=== PATIENT | female | born 1970 | race Caucasian/White ===

== ENCOUNTER 2018-08-29 06:35 | Day surgery (SDC) | payer BC ==
[~2018-08-29] VITALS: Ht 180.3 cm; Wt 110.7 kg
[~2018-08-29 06:35] MED LIST: ADVIL200 M1 PO; CARAFATE1 GM PO; CENTRUM SILVER1 EAC1 PO; CLINDAMYCIN HC300 MG PO; JOINT SUPPORT1 EACH PO; MICROGESTIN FE1 EAC1 PO; NORCO 5-325 TA1 EACH PO; OMEPRAZOLE20 MG PO; PLAQUENIL200 MG PO; VITAMIN K100 MCG PO; ZOLOFT100 MG PO
[2018-08-29] MEDS ORDERED: VITAMIN D50000 UNI1 PO (06:53)
--- NOTE | 2018-08-29 08:12 | NUR ---
08/29/18 0812 Richa Estrada 0801 PATIENT ARRIVES TO PACU SLEEPING, OPENS EYES WITH VERBAL STIMULI, THEN BACK TO SLEEP. RESP EVEN AND UNLABORED, NC AT 3 LITERS TURNED OFF ON ARRIVAL TO PACU, ROOM AIR SATS 92%. 0810 PATIENT SLEEPING. OPENS EYES WITH VERBAL STIMULI, THEN BACK TO SLEEP. RESP EVEN AND UNLAOBRED, ROOM AIR SATS 92%.
--- NOTE | 2018-08-30 07:00 | OR ---
[facility] [address] [place], [place] [address] Signed DATE OF OPERATION: 08/29/2018 SURGEON: Santos Purcell MD STUDY: Colonoscopy. PREOPERATIVE DIAGNOSIS: Rectal bleeding. POSTOPERATIVE DIAGNOSES: 1. Oulrmyi-mo-pqwntnkp sigmoid diverticulosis. 2. Minimal hemorrhoid tissue. PROCEDURE PERFORMED: Colonoscopy without biopsy. ESTIMATED BLOOD LOSS: None. INDICATIONS: Marimar is a 48-year-old female, asked to see me for her initial colonoscopy. She has been having intermittent rectal bleeding over the last year. Usually, it is associated with bowel movements. She is not sure what makes it better or worse. She is not aware of any hemorrhoids. There is no family history of colon cancer, polyps, or inflammatory bowel disease. She was asked by her primary care provider to see me for a colonoscopy. I had given her a pamphlet on colonoscopy in the office. We had discussed the nature of the test along with the risks including but not limited to, gas, bloating, crampy abdominal pain, bleeding, perforation, requiring surgery, and missed diagnosis. She also understands the need for IV conscious sedation. She had expressed understanding and wished to proceed. PROCEDURE NOTE: Marimar was taken into our endoscopy suite and placed in the left lateral decubitus position. She was given IV sedation with 9 mg of Versed and 150 mcg of fentanyl. A digital rectal exam was performed and this was unremarkable. The adult colonoscope was introduced and advanced all around into the cecum under direct visualization of camera. It took just a minute to get through the hepatic flexure. Her prep was quite excellent. Multiple pictures were taken throughout for photodocumentation. We saw no evidence of any polyps or inflammatory disease in the colon or rectum. She does have Electronically Signed By: SANTOS PURCELL MD 08/30/18 0700 PATIENT NAME: MARIMAR COLBERT OPERATIVE REPORT DATE OF : 72 REPORT #: [id number] PHYSICIAN: SANTOS PURCELL MD PCP: CASEY PORTILLO MD REPORT IS CONFIDENTIAL AND NOT TO BE RELEASED WITHOUT AUTHORIZATION [facility] [address] [place], [place] [address] Signed alhymse-by-pgvilvcj sigmoid diverticulosis. They were minimal to moderate in size, minimal to moderate in number, and scattered about. Upon retroflexion in the rectum, she has very minimal routine internal hemorrhoid tissue. After this, the gas was suctioned out and colonoscope removed. Marimar tolerated the procedure quite well. RECOMMENDATIONS: Marimar can follow up in 10 years for repeat colonoscopy. Santos Purcell MD ALB/MODL /[id number] cc: MD Casey Kate MD Copies: SANTOS PURCELL MD, RUSSELL BARR MD ~ Electronically Signed By: SANTOS PURCELL MD 08/30/18 0700 PATIENT NAME: MARIMAR COLBERT OPERATIVE REPORT DATE OF : 72 REPORT #: [id number] PHYSICIAN: SANTOS PURCELL MD PCP: CASEY PORTILLO MD REPORT IS CONFIDENTIAL AND NOT TO BE RELEASED WITHOUT AUTHORIZATION
== END 2018-08-29 08:35 | disposition home or self-care (01) ==
LOC: OPS 06:35 → DS 06:35 → OPS 06:45 → DS 06:45 → OPS 08:35
PROVIDERS: Colon & Rectal Surgery
PROC: 0DJD8ZZ Inspection of Lower Intestinal Tract, Via Natural or Artificial Opening Endoscopic (ICD-10-PCS; principal; 2018-08-29 06:45)
DX: K64.8 Other hemorrhoids (principal); K57.30 Diverticulosis of large intestine without perforation or abscess without bleeding; J32.9 Chronic sinusitis, unspecified; K21.9 Gastro-esophageal reflux disease without esophagitis; K59.00 Constipation, unspecified; Z98.890 Other specified postprocedural states; Z88.0 Allergy status to penicillin; Z79.899 Other long term (current) drug therapy
CPT/HCPCS: 99153; G0500; J2250; J3010; J7120

== ENCOUNTER 2019-05-15 05:45 | Day surgery (SDC) | payer BC ==
[~2019-05-15] VITALS: Ht 180.3 cm; Wt 113.4 kg
--- NOTE | ~2019-05-15 | OR ---
[facility] [address] [place], [place] [address] Draft DATE OF OPERATION: 05/15/2019 SURGEON: Frankie Magana DO PREOPERATIVE DIAGNOSES: 1. Abnormal uterine bleeding. 2. Large fibroid uterus. 3. Suspected adenomyosis. POSTOPERATIVE DIAGNOSES: 1. Abnormal uterine bleeding. 2. Large fibroid uterus. 3. Suspected adenomyosis. PROCEDURES PERFORMED: 1. Total laparoscopic hysterectomy with ExCITE technique required for large uterus. 2. Bilateral salpingectomy. 3. Cystoscopy. MAIL CLERK BILLS: Paul Reyes MD. ANESTHESIA: General. ESTIMATED BLOOD LOSS: 75. COMPLICATIONS: None. SPECIMENS: 1. Large fibroid uterus. 2. Bilateral fallopian tubes. 3. Cervix. FINDINGS: Normal external genitalia with normal clitoris, urethral meatus, bilateral [place] and Bartholin glands. Normal vagina in caliber and length, but well supported. Normal-appearing cervix. On laparoscopy, large multi-fibroid uterus with normal PATIENT NAME: CHELO ALDRIDGE OPERATIVE REPORT DATE OF : 72 REPORT #: [id number] PHYSICIAN: FRANKIE MAGANA DO PCP: CASEY PORTILLO MD REPORT IS CONFIDENTIAL AND NOT TO BE RELEASED WITHOUT AUTHORIZATION [facility] [address] [place] [address] Draft bilateral fallopian tubes and ovaries. At the end of the procedure, good hemostasis noted with excellent support of the vagina. On cystoscopy, normal urethra, bladder trigone, and normal bilateral ureteral jets. INDICATIONS: Ms. Aldridge is a pleasant 48-year-old white female with a long history of worsening dysmenorrhea and heavy abnormal uterine bleeding. Ultrasound demonstrated enlarged multi-fibroid uterus as well as features consistent with possible adenomyosis. The patient failed conservative therapy and wished to proceed with definitive therapy with total laparoscopic hysterectomy. Risks, benefits, and alternatives were discussed in detail with the patient. We did discuss possibly using the ExCITE technique with contained extracorporeal morcellation to avoid a more invasive laparotomy. The patient understands and wished to proceed with the procedure. TECHNIQUE: The patient was taken to the operating room, where a time-out was performed to confirm correct patient and correct procedure. General anesthesia was adequately established. The patient was prepped in the dorsal lithotomy position with feet in Yellofin stirrups. ICPs were on and running. The patient received Ancef 2 g preoperatively and no heparin. A Bautista catheter was inserted and a weighted speculum was placed in the vagina and the anterior lip of the cervix was grasped with an Allis clamp. The cervix was gently dilated using Hegar dilators and a VCare uterine manipulator was placed without difficulty. The surgeon's gloves were changed and attention was turned to the abdomen. The base of the umbilicus was infiltrated with 0.25% Marcaine and a 5 mm trocar was placed using a direct visual entry without difficulty. Low opening pressures were noted on pneumoperitoneum and survey of the abdomen and pelvis was performed with the above findings. Assist ports were placed in the left and right lower quadrants under direct visualization without complication. Large fibroid uterus was noted filling nearly the entire pelvis. It was felt that a total laparoscopic hysterectomy was indicated in that situation and that it could be performed without significant difficulty. The left cornu was elevated and the fallopian tube was fulgurated and divided near the cornua. The left uterosacral ligament was identified, fulgurated, and divided with good hemostasis. The left round ligament was then fulgurated and divided. The anterior leaf of the broad ligament was divided and taken down to the midline anteriorly. The posterior leaf of the broad ligament was then fulgurated and divided down to the uterosacral ligament. The uterine vasculature was identified, fulgurated, and divided with good hemostasis. The process was repeated on the right side with the fallopian tube, utero-ovarian ligament, and round ligaments serially fulgurated and divided with good hemostasis. The leaves of the broad ligament were dissected and the bladder was pushed well beyond the cup of the uterine manipulator. Good hemostasis was appreciated after the uterine vessels were fulgurated and divided, and the uterus was noted to be well blanched. A LigaSure device was used in the fulguration division as described above. Sonicision PATIENT NAME: CHELO ALDRIDGE OPERATIVE REPORT DATE OF : 72 REPORT #: [id number] PHYSICIAN: FRANKIE MAGANA DO PCP: CASEY PORTILLO MD REPORT IS CONFIDENTIAL AND NOT TO BE RELEASED WITHOUT AUTHORIZATION [address] [address] Draft device was then selected and colpotomy was performed starting at the 6 o'clock position and carried around on the patient's left side to the 12 o'clock position. Colpotomy was then completed. Surgeon presents to the vagina and the uterine manipulator was removed. The cervix was grasped with an Allis clamp, but was unable to be easily removed from the vagina. Decision was made to proceed with the ExCITE technique. The vagina was stuffed with a wet lap inside of a glove to maintain pneumoperitoneum. Pneumoperitoneum was reestablished after the placement of a 10 mm Tami port in the umbilical incision. The fascia was grasped with hemostats and fascial incision was extended bilaterally to accept the larger Tami port. A 15 mm EndoCatch bag was then placed through the Tami port and the uterus and cervix placed inside. The Tami port was then removed and the fascia was cut to a width of approximately 4 cm to facilitate ExCITE technique. The bag was then opened extracorporeally and an Silvino O Mini was then placed inside the bag. The serosal edge of the uterus was then grasped with a double toothed tenaculum, elevated extracorporeally, and the ExCITE technique was used to serially morcellate the uterus again extracorporeally in a contained bag. Once this was completed without difficulty, all portions of the uterus and cervix were noted to be removed and the bag was intact without cuts or evidence of any tissue spillage. The 15 EndoCatch bag and Silvino O were removed and the Tami was replaced. Pneumoperitoneum was reestablished. The colpotomy was then closed using V-Loc suture with an Endostitch device incorporating the uterosacral ligaments bilaterally and the vaginal epithelium with each bite. Good hemostasis and vaginal support were noted at the end of the procedure. Evicel was applied to the cuff to ensure continued hemostasis. Attention was then turned to the fallopian tubes. The fallopian tube on the left was grasped at the fimbriated end and divided along the mesosalpinx. The fallopian tube was then removed and sent to pathology for further evaluation. The process was repeated on the right without difficulty. The Tami port was removed and pneumoperitoneum was reduced. Assist ports were removed. The fascia of the umbilical incision was then reapproximated using 0 Vicryl in a running nonlocked manner and supported with the stay ties from the Tami port. Skin was reapproximated using 4-0 Monocryl at all laparoscopic ports. Attention was turned to cystoscopy. The Bautista catheter was removed and 70-degree cystoscope was placed into the urethral meatus and advanced under direct visualization. The patient was given fluorescein to aid with cystoscopy. Normal urethra, trigone, and bladder dome were noted with no injuries to the bladder. Bilateral ureteral jets were noted. The bladder was drained and Bautista catheter was reinserted. The vaginal glove had been removed and the top of the vagina appears normal. The patient was then taken to PACU in good and stable condition. Sponge, needle, and instrument count was correct x2 at the end of the procedure. Dr. Reyes was present and participated in all portions of the procedure. PATIENT NAME: CHELO ALDRIDGE OPERATIVE REPORT DATE OF : 72 REPORT #: [id number] PHYSICIAN: FRANKIE MAGANA DO PCP: CASEY PORTILLO MD REPORT IS CONFIDENTIAL AND NOT TO BE RELEASED WITHOUT AUTHORIZATION [facility] [address] [place], [place] [address] Draft Frankie Magana DO JTaiW/MAICOL /[id number] Copies: ~ PATIENT NAME: CHELO ALDRIDGE OPERATIVE REPORT DATE OF : 72 REPORT #: [id number] PHYSICIAN: FRANKIE MAGANA DO PCP: CASEY PORTILLO MD REPORT IS CONFIDENTIAL AND NOT TO BE RELEASED WITHOUT AUTHORIZATION
[~2019-05-15 05:45] MED LIST changes: +BIOTIN1 M1 PO; +VITAMIN D50000 UNI1 PO
--- NOTE | 2019-05-15 07:03 | NUR ---
PATIENT RESTING BACK, ADMINISTERED PRE-OP MEDICATIONS. PATIENT TOLERATING WELL. CALL LIGHT WITHIN REACH. VS STABLE.
--- NOTE | 2019-05-15 09:58 | NUR ---
05/15/19 0958 Kinga Thomas 0949- PT ARRIVES TO PACU NONAROUSABLE TO NOXIOUS STIMULI. RESP EVEN AND UNLABORED. OXYGEN SAT HIGH 90'S TO 100% ON 8L VIA MASK. 0950- OXYGEN TITRATED TO 6L VIA MASK.
--- NOTE | 2019-05-15 11:59 | NUR ---
PATIENT AMBULATED TO BATHROOM, STEADY ON FEET. MORE DC'D. BACK TO BED, DRINKING LIQUIDS AND TOLERATING SOFT DIET WELL. PUNCTURE SITES ON ABDOMEN CLEAN DRY AND INTACT. AT BEDSIDE. PAIN WELL CONTROLLED WITH PERCOCET RATES PAIN 4/10 PAIN SCALE. PROVIDED WARM BLANKET. DISCUSSED DISCHARGE EDUCATION, WITH PATIENT AND .
--- NOTE | 2019-05-15 12:21 | NUR ---
PATIENT UP TO BATHROOM, TOLERATING ACTIVITY WELL. VOIDED 20 ML OF FLOURESCENT YELLOW URINE. PATIENT CONTINUING TO DRINK FLUIDS. ASSISTING PATIENT WITH GETTING DRESSED. PATIENT STATES " I WANT TO GET HOME TO MY OWN BED".
--- NOTE | 2019-05-16 14:32 | PATH ---
[facility] [address] [place], [place] [address] Signed SPECIMEN(S): A UTERUS, CERVIX, AND TUBES SPECIMEN SOURCE: A. UTERUS, CERVIX, AND TUBES CLINICAL HISTORY: Abnormal uterine bleeding, adenomyosis. FINAL PATHOLOGIC DIAGNOSIS: Uterus, cervix and bilateral fallopian tubes, hysterectomy and bilateral salpingectomy: - Cervix: - Benign squamous mucosa and endocervix with some reactive changes. - Negative for dysplasia and malignancy. - Endomyometrium: - Leiomyomas (up to 3.5 cm). - Adenomyosis. - Serosal adhesions. - Benign proliferative endometrium. - Negative for polyps, hyperplasia, atypia, and malignancy. - Bilateral fallopian tubes: - Benign fimbria and fallopian tubes with paratubal cysts. DDF:cml:C2NR MICROSCOPIC EXAMINATION: Histologic sections of all submitted blocks are examined by light microscopy. These findings, together with the gross examination, support the pathologic diagnosis. GROSS DESCRIPTION: The specimen, labeled "CH, uterus, cervix and bilateral fallopian tubes," is received fresh and consists of a 369 g, 16.2 x 13.5 x 6.8 cm aggregate of morcellated uterine fragments. Within the aggregate there is a 3.0 cm diameter cervix with a 0.7 cm slit-like os. Separate within the container are two undesignated fimbriated fallopian tubes, measuring 4.5 cm in length x 0.7 cm in diameter and 5.7 cm in length x 0.7 cm in diameter. Throughout the specimen there are multiple lopez-white firm, well circumscribed nodules ranging from 0.6 cm to 3.5 x 3.2 x 2.7 cm. All of the nodules have a lopez-white, whorled and well circumscribed cut surface with no areas of hemorrhage grossly identified. The 0.1 cm thick endometrium is red and smooth. PATIENT NAME: CHELO COLBERT PATHOLOGY DATE OF : 72 REPORT #: [id number] PHYSICIAN: MACRINA PATHOLOGY PCP: CASEY PORTILLO MD REPORT IS CONFIDENTIAL AND NOT TO BE RELEASED WITHOUT AUTHORIZATION [facility] [address] [place], [place] [address] Signed The myometrium is lopez-pink and trabeculated. Both fallopian tubes have a violaceous and smooth serosal surface with a stellate lumen. The first dictated fallopian tube includes multiple fluid-filled cysts near the fimbriated end, ranging from 0.4-0.5 cm in greatest dimension. Cassette summary: (A1) cervix (A2) uterine corpus (A3) largest nodule (A4-A5) additional nodules (A6) both fallopian tubes, second dictated fallopian tube inked black. AM (under the direct supervision of a pathologist) The Gross Description was prepared using a voice recognition system. The report was reviewed for accuracy; however, sound-alike word errors, addition and/or deletions may occur. If there is any question about this report, please contact Client Services. PERFORMING LABORATORY: The technical component was performed by [employer], [address] [place] [id number] (Medication Technician: Samina Whalen MD; CLIA# [id number]).[facility], [address] [place] [address] (CLIA# [id number]). Diagnostician: Dixon Riggins DO Pathologist Electronically Signed 05/16/2019 Copies: ~ PATIENT NAME: CHELO COLBERT PATHOLOGY DATE OF : 72 REPORT #: [id number] PHYSICIAN: MACRINA FLORES PCP: CASEY PORTILLO MD REPORT IS CONFIDENTIAL AND NOT TO BE RELEASED WITHOUT AUTHORIZATION
== END 2019-05-15 14:05 | disposition home or self-care (01) ==
LOC: DS 05:45
PROVIDERS: Obstetrics & Gynecology
PROC: 0UT94ZZ Resection of Uterus, Percutaneous Endoscopic Approach (ICD-10-PCS; principal; 2019-05-15 06:45)
PROC: 0UT74ZZ Resection of Bilateral Fallopian Tubes, Percutaneous Endoscopic Approach (ICD-10-PCS; 2019-05-15 06:45)
DX: D25.9 Leiomyoma of uterus, unspecified (principal); N80.0 Endometriosis of uterus; N83.8 Other noninflammatory disorders of ovary, fallopian tube and broad ligament; F32.9 Major depressive disorder, single episode, unspecified; M35.00 Sjogren syndrome, unspecified; E66.9 Obesity, unspecified; Z79.899 Other long term (current) drug therapy; Z88.0 Allergy status to penicillin; Z68.34 Body mass index [BMI] 34.0-34.9, adult
CPT/HCPCS: 00840; J0131; J0330; J1100; J1170; J1580; J1885; J2250; J2405; J2704; J3010; J3490; J7121

== ENCOUNTER 2020-02-09 15:26 | Emergency (ER) | payer BC ==
[~2020-02-09] VITALS: Ht 180.3 cm; Wt 117.9 kg
--- OUTSIDE RECORDS SUMMARY | ~2020-02-09 | XMS | Encounter Summary ---
Demographics + + + | Address | [address] | | | [place] [address] | + + + | Home Phone | | + + + | Preferred Language | Unknown | + + + | Marital Status | | + + + | Mormonism Affiliation | Unknown | + + + | Race | White | + + + | Ethnic Group | Not or | + + + Author + + + | Author | [facility] | | | and [place] | + + + | Organization | [facility] | | | and [place] | + + + | Address | Unknown | + + + | Phone | Unavailable | + + + Support + + + + + | Name | Relationship | Address | Phone | + + + + + | Debra Luis Carlos | ECON | [address] | | | | [place], [place] | | | | | [address] | | + + + + + | Papito Aldridge | ECON | [address] | | | | | [place] | | | | | [address] | | + + + + + | Papito Aldridge | ECON | Unknown | | + + + + + Care Team Providers + +------+ + | Care Lane Attendant Name | Role | Phone | + +------+ + | Marcelo Ruffin MD | PCP | | + +------+ + Encounter Details +--------+ + + + + | Date | Type | Department | Care Team | Description | +--------+ + + + + | 07/08/ | Hospital | [facility] | Gian Valentine | | | 2012 - | Encounter | MED CTR XRAY [address] | [address] | | | | | [address] [place] | [place], [place] | | | 07/10/ | | [place] [address] | [address] | | | 2012 | | [phone] | [phone] | | | | | | | | +--------+ + + + + Social History + +-------+ +--------+------+ | Tobacco Use | Types | Packs/Day | Years | Date | | | | | Used | | + +-------+ +--------+------+ | Never Assessed | | | | | + +-------+ +--------+------+ + + + | Sex Assigned at | Date Recorded | | | | + + + | Not on file | | + + + documented as of this encounter Medications at Time of Discharge + + + +---------+--------+ + | Medication | Sig | Dispensed | Refills | Start | End Date | | | | | | Date | | + + + +---------+--------+ + | Multiple Vitamin | Take 1 tablet by | | 0 | | | | (MULTI-VITAMIN DAILY | mouth Daily. | | | | | | PO) | | | | | | + + + +---------+--------+ + | sertraline | Take 50 mg by mouth | | 0 | | | | (ZOLOFT) 50 mg | Daily. | | | | | | tablet | | | | | | + + + +---------+--------+ + documented as of this encounter Plan of Treatment Not on filedocumented as of this encounter Procedures + +--------+ + + + | Procedure Name | Priori | Date/Time | Associated Diagnosis | Comments | | | ty | | | | + +--------+ + + + | XR CERVICAL SPINE 4 | Routin | 07/08/2012 | | Results for this | | OR 5 VWS | e | 11:45 AM | | procedure are in the | | | | PST | | results section. | + +--------+ + + + documented in this encounter Results XR CERVICAL SPINE 4 OR 5 VW (07/08/2012 11:45 AM PST) + + | Specimen | + + | | + + + + + | Narrative | Performed At | + + + | [facility] | [place] | | Department [address] [place] [address] [facility] | | [ rep [address]] [ rep [facility] | | st zip] Signed | - IMAGING | | | | | Patient Name: MARIMAR ALDRIDGE Physician: | | | ARRE.01 : 1970 Age: 42 Sex: F Unit #: [id number] | | | Exam Date: 07/08/12 Location: [facility] | | | Report #: [id number] Page: | | | %(RAD)RES..mtdd.print.filter("pg") of %(RAD) | | | RES..mtdd.print.filter("tpg") | | | | | | Accession Number: [id number] | | | CERVICAL SPINE FOUR-VIEW X-RAY CLINICAL HISTORY: NECK | | | PAIN. FINDINGS: On the lateral view, the cervical | | | spine is evaluated to the level of C7-T1. There is reversal of the | | | cervical lordosis centered at the level of C5. Vertebral body height | | | and alignment are otherwise maintained. There is no evidence of | | | spondylolisthesis on the flexion and extension views. There is loss | | | of disc height at the level of C4-5 and C5-6, with endplate sclerotic | | | change and osteophyte formation seen at these levels. Uncinate | | | process spurring is also seen in a similar distribution. The | | | prevertebral soft tissues are normal. The visualized structures of the | | | skull base and posterior face are unremarkable. | | | IMPRESSION: NO EVIDENCE OF FRACTURE OR SUBLUXATION. SPONDYLOTIC | | | CHANGE AND LOSS OF DISC HEIGHT DESCRIBED ABOVE. | | | Dictated Date/Time: 07/08/2012 11:45 Transcribed Date/Time: | | | 07/08/2012 11:54 Extrusion Engineer: BRAYDEN | | | <<Signature on File>> | | | Dixon | | | Louise Castillo MD07/08/122000 <Electronically signed by Dixon Castillo MD> Dixon Castillo MD 07/08/12 1145 | | | Extrusion Engineer: The Knowland Groupaakash Quintana07/08/12 1154 | | | Gian Valentine MD | | + + + + + + + + | Performing | Address | City/State/Zipcode | Phone Number | | Organization | | | | + + + + + | [facility] | [address] | [place] | [phone] | | [facility] | | [address] | | | - IMAGING | | | | + + + + + documented in this encounter Visit Diagnoses Not on filedocumented in this encounter
--- OUTSIDE RECORDS SUMMARY | ~2020-02-09 | XMS | Encounter Summary ---
Demographics + + + | Address | [address] | | | [place] [address] | + + + | Home Phone | | + + + | Preferred Language | Unknown | + + + | Marital Status | | + + + | Congregational Affiliation | Unknown | + + + | Race | White | + + + | Ethnic Group | Not or | + + + Author + + + | Author | [facility] | | | and [place] | + + + | Organization | [facility] | | | [...] [place], [place] | | | | | [address] | | + + + + + | Papito Aldridge | ECON | [address] | | | | | [place] | | | | | [address] | | + + + + + | Papito Aldridge | ECON | Unknown | | + + + + + Care Team Providers + +------+ + | Care Home Energy Consultant Supervisor Name | Role | Phone | + +------+ + | Marcelo Ruffin MD | PCP | | + +------+ + Encounter Details +--------+ + + + + | Date | Type | Department | Care Team | Description | +--------+ + + + + | 07/02/ | Abstract | [facility] [place] [facility] Gian Valentine | | | 2012 | | [address] | MD Julius [address] | | | | | [address] | [place], [place] | | | | | [place], [place] | [address] | | | | | [address] | [phone] | | | | | [phone] | | | +--------+ + + + [...] + + documented as of this encounter Plan of Treatment Not on filedocumented as of this encounter Visit Diagnoses Not on filedocumented in this encounter"
--- OUTSIDE RECORDS SUMMARY | ~2020-02-09 | XMS | Encounter Summary ---
Demographics + + + | Address | [address] | | | [place] [address] | + + + | Home Phone | | + + + | Preferred Language | Unknown | + + + | Marital Status | | + + + | Congregation Affiliation | Unknown | + + + | Race | White | + + + | Ethnic Group | Not or | + + + Author + + + | Author | [facility] | | | and [place] | + + + | Organization | [facility] | | | and [...] [place], [place] | | | | | [address] | | + + + + + | Papito Aldridge | ECON | [address] | | | | | [place] | | | | | [address] | | + + + + + | Papito Aldridge | ECON | Unknown | | + + + + + Care Team Providers + +------+ + | Care Lighting Technician Name | Role | Phone | + +------+ + | Marcelo Ruffin MD | PCP | | + +------+ + Reason for Referral Evaluate & Treat (Routine) +--------+ + + + + + | Status | Reason | Specialty | Diagnoses / | Referred By | Referred To | | | | | Procedures | Contact | Contact | +--------+ + + + + + | Closed | Specialty | Pain Medicine | Diagnoses | Valentine, | [place], | | | Services | | Cervical | Gian Madrid, | Valentino Larson MD | | | Required | | disc | MD [address] | | | | | disorder | [address] | [address] | | | | | with | [place], | [address] | | | | | radiculopath | [place] [address] | [place] | | | | | y Disc | Phone: | [address] | | | | | displacement | [phone] | Phone: | | | | | , cervical | [phone] Fax: | [phone] | | | | | Grenola-neck | | Fax: | | | | | deformity(73 | [phone] | [phone] | | | | | 6.22) | | | +--------+ + + + + + Evaluate & Treat (Routine) +--------+ + + + + + | Status | Reason | Specialty | Diagnoses / | Referred By | Referred To | | | | | Procedures | Contact | Contact | +--------+ + + + + + | Closed | Specialty | Physical | Diagnoses | Van Renetta, | | | | Services | Therapy | Cervical | Jseus, | | | | Required | | disc | PA-C [address] | | | | | | disorder | [address] | | | | | | with | [place], | | | | | | radiculopath | [place] [address] | | | | | | y Disc | Phone: | | | | | | displacement | [phone] | | | | | | , cervical | Fax: | | | | | | Grenola-neck | [phone] | | | | | | deformity(73 | | | | | | | 6.22) | | | +--------+ + + + + + Reason for Visit + + + | Reason | Comments | + + + | Neck Pain | | + + + | Shoulder Pain | | + + + Encounter Details +--------+---------+ + + + | Date | Type | Department | Care Team | Description | +--------+---------+ + + + | 07/08/ | Office | [facility] | Gian Valentine | Cervical disc | | 2012 | Visit | NEUROSURGERY [address] | MD Julius [address] | disorder with | | | | [address] | St [place], [place] | radiculopathy | | | | [place], [place] | [address] | (Primary Dx); Disc | | | | [address] | [phone] | displacement, | | | | [phone] | | cervical; Grenola-neck | | | | | | deformity | +--------+---------+ + + + Social History + +-------+ +--------+------+ | Tobacco Use | Types | Packs/Day | Years | Date | | | | | Used | | + +-------+ +--------+------+ | Never Smoker | | | | | + +-------+ +--------+------+ + +---+---+---+ | Smokeless Tobacco: | | | | | Never Used | | | | + +---+---+---+ + + +---------+ + | Alcohol Use | Drinks/Week | oz/Week | Comments | + + +---------+ + | Yes | | | rarely | + + +---------+ + + + + | Sex Assigned at | Date Recorded | | | | + + + | Not on file | | + + + documented as of this encounter Last Filed Vital Signs + + + + + | Vital Sign | Reading | Time Taken | Comments | + + + + + | Blood Pressure | 119/70 | 07/08/2012 9:40 AM | | | | | PST | | + + + + + | Pulse | 75 | 07/08/2012 9:40 AM | | | | | PST | | + + + + + | Temperature | - | - | | + + + + + | Respiratory Rate | 20 | 07/08/2012 9:40 AM | | | | | PST | | + + + + + | Oxygen Saturation | - | - | | + + + + + | Inhaled Oxygen | - | - | | | Concentration | | | | + + + + + | Weight | 100 kg (220 lb 6.4 | 07/08/2012 9:40 AM | | | | oz) | PST | | + + + + + | Height | 182 cm (5' 11.65") | 07/08/2012 9:40 AM | | | | | PST | | + + + + + | Body Mass Index | 30.18 | 07/08/2012 9:40 AM | | | | | PST | | + + + + + documented in this encounter Progress Notes Gian Valentine MD - 07/08/2012 10:12 AM PSTFormatting of this note might be differen t from the original. MD Jesus Darden [address], [address] [place], [place] [id number] FAX: NEUROSURGERY HISTORY AND PHYSICAL EXAMINATION CHIEF COMPLAINT: Chief Complaint Patient presents with Neck Pain Shoulder Pain HISTORY OF PRESENT ILLNESS: We had the great pleasure of seeing in my clinic Ms. Marimar gonzalez. Ms. Aldridge is a very pleasant 42 y.o. female with the complaint of symptoms that be nilda 1-2 years ago. She describes her symptoms as left sided neck/shoulder pain radiating do wn her left arm with associated numbness in her thumb and index finger on her left hand. Sahil r symptoms have been progressive since April 2012 which is when she noticed the numbness in her fingers. She denies any inciting event and denies symptoms on the right side. She r eports that she has been riding horses all her life. Her symptoms worsen with prolonged periods of sitting. Her symptoms improve with NSAIDs. She describes left thumb and index numbness. She describes left hand weakness. Bowel and bladder function are stable. Treatments for these symptoms she has tried include chiropractics and NSAIDs. PAST MEDICAL HISTORY: Past Medical History Diagnosis Date Environmental allergies PAST SURGICAL HISTORY: No past surgical history on file. CURRENT MEDICATIONS: Current Outpatient Prescriptions on File Prior to Visit Medication Sig Dispense Refill sertraline (ZOLOFT) 50 mg tablet Take 50 mg by mouth Daily. Multiple Vitamin (MULTI-VITAMIN DAILY PO) Take 1 tablet by mouth Daily. ALLERGIES: Allergies Allergen Reactions Penicillins Other (See Comments) Blisters around mouth SOCIAL HISTORY: The patient reports that she has never smoked. She has never used smokeless tobacco. She r eports that she drinks alcohol. She reports that she does not use illicit drugs. FAMILY HISTORY: Family History Problem Relation Age of Onset Heart defect Father Diabetes Father High blood pressure Father Alcohol abuse Sister Alcohol abuse Maternal Uncle Migraines Maternal Grandmother Diabetes Maternal Grandmother Arthritis Mother REVIEW OF SYSTEMS: GENERAL: No fever, no anemia, no fatigue, no recent profound weight changes. EYES: No eye problems, no use of corrective lenses, no eye injury, no double vision, no bl indness. EARS, NOSE, AND THROAT: No changes in taste or smell, no hearing difficulty, no ringing in the ears, no ear drainage, no dizziness, no voice changes, no difficulty swallowing, no sig nificant snoring, no sleep apnea, no sinus problems, no major dental work. NEUROLOGIC: Please see the review of systems discussed above in the history of present ill ness. MUSCULOSKELETAL: complains of neck pain, denies back pain. PSYCHIATRIC: No depression, no sleep disorders, no anxiety, no bipolar disorder, no psycho tic episodes. CARDIOVASCULAR: No heart attacks, no heart murmur, no heart fluttering, no chest pain, no ankle swelling. PULMONARY: No shortness of breath, no cough, no tuberculosis, no bloody cough, no asthma, no emphysema/COPD. GASTROINTESTINAL: No bowel disease, no nausea or vomiting, no rectal bleeding, no constipa tion, no stool incontinence, no liver disease, no gallbladder disease, no abdominal pain, no ulcers. GENITOURINARY: No urinary frequency, no painful or difficult urination, no Incontinence. ENDOCRINE: No diabetes, no thyroid disease, no osteopenia or osteoporosis, no breast drain age. SKIN: No breast lumps, no skin changes, no rashes, no itches. HEMATOLOGIC/LYMPHATIC: No enlarged lymph nodes, no easy or unusual bleeding, no personal h istory of cancer. RHEUMATOLOGIC: No joint arthritis, no rheumatoid, no inflammatory arthritis. PHYSICAL EXAMINATION: Blood pressure 119/70, pulse 75, resp. rate 20, height 1.82 m (5' 11.65"), weight 99.973 kg (220 lb 6.4 oz). Body mass index is 30.18 kg/(m^2). GENERAL: Marimar Aldridge is a pleasant, well developed, well nourished female in no acute d istress with unlabored respirations who appears her stated age. The patient does not appea r uncomfortable throughout the exam today. HEENT: HEAD/FACE: EYES: EARS: NASOPHARNYX: OROPHARNYX: Normocephalic and atraumatic. There are no areas of recent trauma. Normal sclerae without icterus. Tympanic membranes are clear. No drainage or tenderness. Benign. Clear without drainage. Benign. Clear without erythema. NECK (ANTERIOR): Supple with no palpable masses. There are not audible bruits. CHEST: Clear to ausculation without crackles or wheeze. HEART: Regular rate and rhythm without murmurs. ABDOMEN: Soft, non-tender, non-distended, and without palpable masses. The patient is not obese. SPINE: The cervical spine exam shows there is no tenderness over the C-2 and C-8 region. R meaghan of motion is limited. Rotation and extension does not cause symptoms to radiate into t he extremities. No tenderness in the midline of the thoracic or lumbar spine. There is no major palpable d eformity of the spine. EXTREMITIES: No cyanosis, clubbing, or edema. Distal pulses are palpable. NEUROLOGICAL EXAM: MENTAL STATUS: The patient is awake, alert, and oriented x3. Speech is fluent, comprehension is intact. Affect is appropriate. Fund of knowledge is adequate. Memory is intact for recent and remote events. CRANIAL NERVES: II: Acuity is intact. Rojas are full to confrontation. III, IV, : The pupils are reactive. Extraocular movements are intact. No ptosis is note d. V: Facial sensation is intact and symmetric. VII: Facial movements are symmetric. VIII: Hearing is intact bilaterally. IX, X: The uvula and palate move appropriately. XI: Shrug is equal bilaterally. XII: Tongue protrusion is midline. MOTOR EXAM: (5 IS NORMAL) * Indicates pain limited MUSCLE/ MOVEMENT: RIGHT LEFT Deltoids 5 5 Biceps 5 5 Triceps 5 5 Wrist Flexion 5 5 Wrist Extension 5 5 Median Intrinsics 5 5 Ulnar Intrinsics 5 5 Byproducts Operator Strength 42# 36# Hip Flexion 5 5 Hip Extension 5 5 Knee Flexion 5 5 Knee Extension 5 5 Dorsiflexion 5 5 Extensor Hallicus Longus 5 5 Plantarflexion 5 5 SENSORY EXAM: Sensory exam shows diminished sensation to light touch or pain in her left thumb and index finger. REFLEXES: (2 OR 2+ IS NORMAL) REFLEX: RIGHT LEFT BICEPS 2 3 BRACHIORADIALIS 2 2 TRICEPS 2 2 PATELLAR 2 2 ACHILLES 2 2 URBAN'S ABSENT ABSENT PLANTAR ABSENT ABSENT GAIT: Gait is steady. The patient is able to heel/ toe, and tandem walk. PERIPHERAL NERVE/MISC: Tinel is negative at the wrists and elbows bilaterally. Phalen is negative. Straight leg raise is negative bilaterally. Alex's test of the hips is negative bilaterally. Impingement test is negative bilaterally. RADIOGRAPHIC REVIEW: Imaging studies which were reviewed with the patient include an MRI of the cervical spine p erformed without contrast on April 24, 2012. This demonstrates what appears to be mild s wan-neck deformity. There is degenerative disc disease with disc herniations present at C4- 5 and C5-6. There is some left neuroforaminal stenosis at the left C5-6 level. X-rays AP and lateral as well as flexion extension and oblique views of the cervical spine performed on April 18, 2012 demonstrate this mild swan-neck deformity with the mild degene rative disc disease. 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 However this point I would recommend additional conserva tive therapy as she has not pursued much yet. Therefore will make a referral for physical t herapy including cervical traction. Additionally on the head refer her to Dr. Malcolm Núñez for consideration for possible epidural steroid injection. Should these measures fail or s hould her symptoms worsen I instructed her to contact me to return to we can revisit the opt ions for surgical treatment. We spent 1 hour in visit with Marimar Aldridge today with the majority of time spent counsell ing the patient on her diagnosis, discussing options for her care, and coordinating her care . ELECTRONICALLY SIGNED BY: Gian Valentine MD, 07/08/2012 10:42 documented in this encounter Plan of Treatment + + +--------+ + + | Name | Type | Priori | Associated Diagnoses | Order Schedule | | | | ty | | | + + +--------+ + + | Ambulatory referral | Outpatient | Routin | Cervical disc | 1 Occurrences | | to Physical Therapy | Referral | e | disorder with | starting 07/08/2012 | | | | | radiculopathy Disc | until 07/08/2013 | | | | | displacement, | | | | | | cervical Grenola-neck | | | | | | deformity | | + + +--------+ + + | Ambulatory referral | Outpatient | Routin | Cervical disc | 1 Occurrences | | to Pain Clinic | Referral | e | disorder with | starting 07/08/2012 | | | | | radiculopathy Disc | until 07/08/2013 | | | | | displacement, | | | | | | cervical [place]-neck | | | | | | deformity | | + + +--------+ + + documented as of this encounter Visit Diagnoses + + | Diagnosis | + + | Cervical disc disorder with radiculopathy - Primary Other and unspecified disc | | disorder of cervical region | + + | Disc displacement, cervical Displacement of cervical intervertebral disc without | | myelopathy | + + | [place]-neck deformity(736.22) Grenola-neck deformity | + + documented in this encounter
--- OUTSIDE RECORDS SUMMARY | ~2020-02-09 | XMS | Encounter Summary ---
Demographics + + + | Address | [address] | | | [place] [address] | + + + | Home Phone | | + + + | Preferred Language | Unknown | + + + | Marital Status | | + + + | Rastafarian Affiliation | Unknown | + + + | Race | White | + + + | Ethnic Group | Not or | + + + Author + + + | Author | [facility] | | | and [place] | + + + | Organization | [facility] | | | [...] [place], [place] | | | | | [address] | | + + + + + | Papito Aldridge | ECON | [address] | | | | | [place] | | | | | [address] | | + + + + + | Papito Aldridge | ECON | Unknown | | + + + + + Care Team Providers + +------+ + | Care Assembly Hand Name | Role | Phone | + +------+ + | Marcelo Ruffin MD | PCP | | + +------+ + Reason for Visit +--------+--------+ + | Reason | Onset | Comments | | | Date | | +--------+--------+ + | Other | 07/18/ | Requests increase in cervical traction weight | | | 2012 | | +--------+--------+ + Encounter Details +--------+ + + + + | Date | Type | Department | Care Team | Description | +--------+ + + + + | 07/18/ | Telephone | [facility] | Gian Valentine | Other (Requests | | 2012 | | [address] | MD Julius [address] | increase in cervical | | | | [address] | [place], [place] | traction weight ) | | | | [place], [place] | [address] | | | | | [address] | [phone] | | | | | [phone] | | | +--------+ + + + [...] + + documented as of this encounter Miscellaneous Notes Telephone Encounter - Jazmine George - 07/19/2012 8:57 AM PSTLeft message for Jossue malik from Dr. Valentine to increase the weight of Marimar's cervical traction. Jazmine elephone Encounter - Gian Valentine MD - 07/18/2012 5:01 PM PSTOk, 10-15 pounds. elephone Encounter - Jazmine George - 12/2012 8:48 AM PSTJossue calls today to see if it would be okay for him to increase the weigh t on Marimar's cervical traction. He states that the prescription states up to 5lbs and he w ould like to increase this to 15lbs. They did try the 5lbs yesterday and didn't feel as if it was doing anything. Please advise. Jazmine documented in this enc ounter Plan of Treatment Not on filedocumented as of this encounter Visit Diagnoses Not on filedocumented in this encounter"
--- OUTSIDE RECORDS SUMMARY | ~2020-02-09 | XMS | Clinical Summary ---
Demographics + + + | Address | [address] | | | [place] [address] | + + + | Home Phone | | + + + | Preferred Language | Unknown | + + + | Marital Status | | + + + | Catholic Affiliation | Unknown | + + + | Race | White | + + + | Ethnic Group | Not or | + + + Author + + + | Author | [facility] | | | and [place] | + + + | Organization | [facility] | | | [...] [place], [place] | | | | | [address] | | + + + + + | Papito Aldridge | ECON | [address] | | | | | [place] | | | | | [address] | | + + + + + | Papito Aldridge | ECON | Unknown | | + + + + + Care Team Providers + +------+ + | Care Surety Bond Agent Name | Role | Phone | + +------+ + | Marcelo Ruffin MD | PCP | | + +------+ + Allergies + + + + + + | Active Allergy | Reactions | Severity | Noted | Comments | | | | | Date | | + + + + + + | Penicillins | Other (See Comments) | High | 07/08/19 | Blisters around | | | | | 13 | mouth | + + + + + + Medications + + + +---------+------+------+-------+ | Medication | Sig | Dispensed | Refills | Star | End | Statu | | | | | | t | Date | s | | | | | | Date | | | + + + +---------+------+------+-------+ | sertraline | Take 50 mg by mouth | | 0 | | | Activ | | (ZOLOFT) 50 mg | Daily. | | | | | e | | tablet | | | | | | | + + + +---------+------+------+-------+ | Multiple Vitamin | Take 1 tablet by | | 0 | | | Activ | | (MULTI-VITAMIN DAILY | mouth Daily. | | | | | e | | PO) | | | | | | | + + + +---------+------+------+-------+ Active Problems + + + | Problem | Noted Date | + + + | Cervical disc disorder with radiculopathy | 07/08/2012 | + + + | Disc displacement, cervical | 07/08/2012 | + + + | [place]-neck deformity(736.22) | 07/08/2012 | + + + | Environmental allergies | | + + + Family History + + +------+ + | Medical History | Relation | Name | Comments | + + +------+ + | Diabetes | Father | | | + + +------+ + | Heart defect | Father | | | + + +------+ + | High blood pressure | Father | | | + + +------+ + | Diabetes | Maternal | | | | | Grandmoth | | | | | er | | | + + +------+ + | Migraines | Maternal | | | | | Grandmoth | | | | | er | | | + + +------+ + | Alcohol abuse | Maternal | | | | | Uncle | | | + + +------+ + | Arthritis | Mother | | | + + +------+ + | Alcohol abuse | Sister | | | + + +------+ + + +------+ + + | Relation | Name | Status | Comments | + +------+ + + | Father | | | Heart Attack | + +------+ + + | Maternal Grandmother | | | | + +------+ + + | Maternal Uncle | | | | + +------+ + + | Mother | | | | + +------+ + + | Sister | | | | + +------+ + + Social History + +-------+ +--------+------+ [...] on file | | + + + Last Filed Vital Signs + + + [...] | | + + + + + Plan of Treatment + + +-------+ + | Health Maintenance | Due Date | Last | Comments | | | | Done | | + + +-------+ + | Vaccine: | | | | | Dtap/Tdap/Td (1 - | 0 | | | | Tdap) | | | | + + +-------+ + | Cervical Cancer | | | | | Screening (Pap) | 1 | | | + + +-------+ + | Breast Cancer | | | | | Screening | 6 | | | + + +-------+ + | Vaccine: Influenza | | | | | (#1) | 0 | | | + + +-------+ + Results Not on filefrom Last 3 Months Insurance + +--------+ +--------+ +---------+------+ | Payer | Benefi | Subscriber | Effect | Phone | Address | Type | | | t Plan | ID | ja | | | | | | / | | Dates | | | | | | Group | | | | | | + +--------+ +--------+ +---------+------+ | [employer] | [place] | [id number] | 06/11/19 | [phone] | | PPO | | | | | 13-Pre | 2 | | | | | HEALTH | | sent | | | | | | CARE | | | | | | | | PPO | | | | | | + +--------+ +--------+ +---------+------+ + +--------+ +--------+ + + | Guarantor Name | Accoun | Relation to | Date | Phone | Billing Address | | | t Type | Patient | of | | | | | | | | | | + +--------+ +--------+ + + | Marimar Aldridge | Person | Self [birth year] | [address] | | | al/Fam | | 1970 | [phone] | [place] [address] | | | sivan | | | 9 (Home) | | | | | | | [phone] | | | | | | | 2 (Work) | | + +--------+ +--------+ + + | Marimar Aldridge L | Person | Self | [birth year] | [address] | | | al/Fam | | 1969 | [phone] | [place] [address] | | | sivan | | | 9 (Home) | | | | | | | [phone] | | | | | | | 2 (Work) | | + +--------+ +--------+ + + Advance Directives + + + + + | Type | Date Recorded | Patient | Explanation | | | | Personnel Clerk | | + + + + + | Power of | | | | | Appliance Counselor | | | | + + + + +
--- OUTSIDE RECORDS SUMMARY | ~2020-02-09 | XMS | Encounter Summary ---
Demographics + + + | Address | [address] | | | [place] [address] | + + + | Home Phone | | + + + | Preferred Language | Unknown | + + + | Marital Status | | + + + | Yazidi Affiliation | Unknown | + + + | Race | White | + + + | Ethnic Group | Not or | + + + Author + + + | Author | [facility] | | | and [place] [...] [place], [place] | | | | | [address] | | + + + + + | Papito Aldridge | ECON | [address] | | | | | [place] | | | | | [address] | | + + + + + | Papito Aldridge | ECON | Unknown | | + + + + + Care Team Providers + +------+ + | Care Field Support Engineer Name | Role | Phone | + +------+ + | Marcelo Ruffin MD | PCP | | + +------+ + Encounter Details +--------+ + + + + | Date | Type | Department | Care Team | Description | +--------+ + + + + | 07/02/ | Orders Only | [facility] | Gian Valentine | Neck pain (Primary | | 2012 | | NEUROSURGERY [address] | [facility] [address] | Dx) | | | | [address] | [place], [place] | | | | | [place] | [address] | | | | | [address] | [phone] | | | | | [phone] | | | +--------+ + + + [...] as of this encounter Plan of Treatment + +---------+--------+ + + | Name | Type | Priori | Associated Diagnoses | Order Schedule | | | | ty | | | + +---------+--------+ + + | XR CERVICAL SPINE 4 | Imaging | Routin | Neck pain | Expected: | | OR 5 VW | | e | | 07/02/2012, Expires: | | | | | | 07/02/2013 | + +---------+--------+ + + documented as of this encounter Visit Diagnoses + + | Diagnosis | + + | Neck pain - Primary Cervicalgia | + + documented in this encounter"
[2020-02-09] MEDS ORDERED: MORPHINE SULFAT15 MG PO (16:54)
[2020-02-09] MEDS ORDERED: ONDANSETRON ODT4 MG SL (16:54)
[2020-02-09] MEDS ORDERED: FLOMAX0.4 MG PO (16:54)
== END 2020-02-09 17:34 | disposition home or self-care (01) ==
LOC: ED 15:26
DX: N20.2 Calculus of kidney with calculus of ureter (principal); Z88.0 Allergy status to penicillin; Z79.899 Other long term (current) drug therapy
CPT/HCPCS: 74176; 80053; 81001; 84703; 85025; 96360; 99284-25; J7030